=== PATIENT | male | born 1980 | race Hispanic/Latino ===

== ENCOUNTER 2018-06-01 22:28 | Emergency (ER) | payer OTHER ==
[2018-06-01] MEDS ORDERED: HYDROCODONE/ACETAMINOPHEN 5/325 MG TAB ONE (23:26)
[2018-06-01] MEDS ORDERED: DEXAMETHASONE SOD PHOSPHATE 10MG/ML 1ML VIAL ONE (23:26)
[2018-06-01] MEDS ORDERED: KETOROLAC TROMETHAMINE 60 MG/2 ML VIAL ONE (23:26)
== END 2018-06-02 00:07 | disposition home or self-care (01) ==
LOC: EDH 22:28
DX: M54.5 Low back pain (principal); M79.605 Pain in left leg
CPT/HCPCS: 96372 ×2; 99284; J1100; J1885